=== PATIENT | female | born 1990 | race Caucasian/White ===

== ENCOUNTER → 2021-04-19 | Outpatient (CLI) | payer OTHER | LOC: COL.RAD 04-18 12:30 | DX: M25.522 Pain in left elbow (principal) ==

== ENCOUNTER → 2021-06-01 | Outpatient (CLI) | payer OTHER | LOC: COL.RAD 13:05 | DX: M25.522 Pain in left elbow (principal) | CPT/HCPCS: J3301 ==

== ENCOUNTER → 2021-08-08 | Outpatient (CLI) | payer OTHER | LOC: COL.RAD 12:54 | DX: S73.191A Other sprain of right hip, initial encounter (principal); M25.851 Other specified joint disorders, right hip; M25.351 Other instability, right hip | CPT/HCPCS: A9585; Q9967 ==

== ENCOUNTER → 2022-01-21 | Outpatient (CLI) | payer OTHER | LOC: COL.RAD 07:36 | DX: M25.559 Pain in unspecified hip (principal) | CPT/HCPCS: J3301; Q9967 ==

== ENCOUNTER → 2022-02-14 | Outpatient (CLI) | payer OTHER | LOC: COL.RAD 02-06 08:00 | DX: M25.551 Pain in right hip (principal) | CPT/HCPCS: J3301; Q9967 ==